=== PATIENT | male | born 1975 | race Caucasian/White ===

== ENCOUNTER 2019-06-28 19:24 | Emergency (ER) | payer OTHER, MEDICAID ==
[~2019-06-28] VITALS: Ht 167.6 cm; Wt 68.0 kg
[2019-06-28 19:30] VITALS: BP_SYST 139
--- NOTE | 2019-06-28 19:55 | NUR ---
Placed in room 02 . Placed on [employer]obe [employer], blood pressure machine and pulse oximeter. To gown for exam. Side rails up.
--- NOTE | 2019-06-28 20:00 | NUR ---
Pt BIB BLS from [facility] in [place] for nausea and vomiting since this morning and increased agitation and decreased sleep. Pt nonverbal and unable to sit still. Pt taking off ECG leads and pulse oximeter. No other injuries/complaints per pt/noted. Will continue to monitor.
--- NOTE | 2019-06-28 20:05 | NUR ---
ER Dr. Elizalde at bedside examining patient.
[2019-06-28] MEDS ORDERED: ONDANSETRON HCL 4 MG/2 ML VIAL IVP ONE (20:15)
[2019-06-28] MEDS ORDERED: LORazepam 2 MG/ML VIAL IM ONE (20:15)
[2019-06-28] MEDS ORDERED: NACL 0.9% 1,000 ML IV ONE ×2 (20:15→22:45)
--- NOTE | 2019-06-28 20:15 | NUR ---
# 20 gauge angiocath placed to left hand. Use of asceptic technique. Opsite placed over site. Blood return noted. Blood for lab drawn from site. Flushed with 10 cc of normal saline. No evidence of infiltration noted. Pt pulled out IV Bandage applied to site. Bleeding controlled.
--- NOTE | 2019-06-28 20:20 | NUR ---
# 20 gauge angiocath placed to Right Hand. Use of asceptic technique. Opsite placed over site. Blood return noted. Blood for lab drawn from site. Flushed with 10 cc of normal saline. No evidence of infiltration noted. IV site wrapped with coban dressing applied. Patient pulled out IV. Bleeding controlled and bandaged applied to site. MD Dr. Elizalde notified. Soft wrist restraints verbal order.
--- NOTE | 2019-06-28 20:30 | NUR ---
# 20 gauge angiocath placed to Right AC. Use of asceptic technique. Opsite placed over site. Blood return noted. Blood for lab drawn from site. Flushed with 10 cc of normal saline. No evidence of infiltration noted. Patient tolerated well.
[2019-06-28] MEDS ORDERED: CALC-1263 PO (20:37)
[2019-06-28] MEDS ORDERED: FAMO20TA8 PO (20:37)
[2019-06-28] MEDS ORDERED: BISCOLAX RC (20:37)
[2019-06-28] MEDS ORDERED: IBUP-1968 PO (20:37)
[2019-06-28] MEDS ORDERED: [UNRECOGNIZED DRUG - OTHER] RC (20:37)
[2019-06-28] MEDS ORDERED: MAGNESIUM HYDROXIDE PO (20:37)
[2019-06-28] MEDS ORDERED: ACET325T53 PO (20:37)
[2019-06-28] MEDS ORDERED: OMEP20CA11 PO (20:37)
[2019-06-28] MEDS ORDERED: CALC3.8S NS (20:37)
--- NOTE | 2019-06-28 20:37 | NUR ---
Medication reconciliation completed with information provided by medication list from [facility]. Any prior medication reconciliation on file was reviewed and corrected.
[2019-06-28 20:41] LABS: CALCIUM 11.2 mg/dL (8.4-11.0); CREATININE 1.15 mg/dL (0.55-1.30); POTASSIUM 3.6 mmol/L (3.5-5.1)
[2019-06-28 20:42] LABS: RED CELL DISTRIBUTION WIDTH 13.1 % (9.0-15.0)
[2019-06-28 20:48] LABS: ALBUMIN 4.3 g/dL (3.4-4.8); TOTAL BILIRUBIN 0.9 mg/dL (0.0-1.0)
--- NOTE | 2019-06-28 20:48 | NUR ---
Physician order given to place soft type restraints to bilateral wrists to prevent pulling out IV tubing, pulse ox, bp cuff and ECG leads. Resraints placed with quick-release ties to bed frame. Will monitor patient frequently.
[2019-06-28 20:51] LABS: BASOPHILS % (AUTO) 0.3 % (0.0-2.0); HEMATOCRIT 52.6 % (36-54); HEMOGLOBIN 18.2 g/dL (14.0-18.0); LYMPHOCYTES # (AUTO) 0.6 K/uL (1.0-5.5); MEAN CORPUSCULAR HEMOGLOBIN 32 pg (27-31); MEAN CORPUSCULAR HGB CONC 35 % (32-36); MEAN CORPUSCULAR VOLUME 92 fL (79.0-98.0); MONOCYTES # (AUTO) 0.6 K/uL (0.0-1.0); MONOCYTES % (AUTO) 4.9 % (1.7-9.3); NEUTROPHILS # (AUTO) 10.1 K/uL (1.8-7.7); NEUTROPHILS % (AUTO) 89.8 % (40.0-70.0); RED BLOOD CELL COUNT(AUTO) 5.69 MIL/uL (4.2-6.2)
[2019-06-28 20:55] LABS: PLATELET COUNT (AUTO) 273 K/uL (130-430); WHITE BLOOD COUNT (AUTO) 11.3 K/uL (4.8-10.8)
[2019-06-28] MEDS ORDERED: HALOPERIDOL LACTATE 5 MG/ML VIAL IM ONE (21:00)
--- NOTE | 2019-06-28 21:09 | NUR ---
# 14 FR In and Out catheter with use of sterile technique. Immediate return of 200 ml dark, yellow urine noted. Urine sample collected and sent to lab. Pt tolerated procedure well.
[2019-06-28 21:36] LABS: BILIRUBIN,URINE 1+ (NEGATIVE); BLOOD, URINE 1+ (NEGATIVE); CLARITY/URINE SLIGHTLY CLOUDY (CLEAR); COLOR,URINE YELLOW (YELLOW); GLUCOSE,URINE NEGATIVE (NEGATIVE); KETONES,URINE 1+ (NEGATIVE); LEUKOCYTE ESTERASE ,URINE NEGATIVE (NEGATIVE); NITRITE, URINE NEGATIVE (NEGATIVE); PH,URINE 5.5 (5.0-8.0); PROTEIN URINE 3+ (NEGATIVE)
[2019-06-28 21:48] LABS: WBC,URINE 0-3 /HPF (0-3)
[2019-06-28 21:49] LABS: BACTERIA,URINE FEW /HPF (None Seen); CALCIUM OXALATE CRYSTALS,UR 0-10 /HPF (None Seen); FINE GRANULAR CASTS,URINE 0-10 /LPF (None Seen)
--- NOTE | 2019-06-28 22:43 | NUR ---
BP 93/49. Dr. Elizalde notified. Verbal order of 1 L NS bolus.
--- NOTE | 2019-06-28 23:35 | NUR ---
Pt is sleeping in bed, no acute distress noted at this time.
--- NOTE | 2019-06-29 01:00 | NUR ---
Pt is resting in bed, no acute distress noted at this time.
--- NOTE | 2019-06-29 01:45 | NUR ---
Pt is sleeping in bed, no acute distress noted at this time.
--- NOTE | 2019-06-29 02:10 | NUR ---
Report has been given to Sam CHEN at [facility]
--- NOTE | 2019-06-29 02:28 | NUR ---
[facility] transport is here for patient pickup
[2019-06-29 02:29] VITALS: BP_SYST 109
--- NOTE | 2019-06-29 02:30 | NUR ---
Patient given written and verbal discharge instructions and verbalizes understanding. ER MD discussed with patient the results and treatment provided. Patient in stable condition. ID arm band removed. IV catheter removed intact and dressing applied, no active bleeding. Rx of Zofran given. Patient educated on pain management and to follow up with PMD. Pain Scale 0. Opportunity for questions provided and answered. Medication side effect fact sheet provided.
== END 2019-06-29 02:30 | disposition home or self-care (01) ==
LOC: SED 19:24
DX: R45.1 Restlessness and agitation (principal); R11.10 Vomiting, unspecified; Z79.899 Other long term (current) drug therapy
CPT/HCPCS: 36415; 71045; 80053; 81000; 85025; 96361 ×2; 96372; 96374; 99284; J1630; J2060; J2405; J7030